=== PATIENT | female | born 1965 | race Hispanic/Latino ===

== ENCOUNTER 2018-12-16 11:57 | Day surgery (SDC) | payer OTHER ==
[2018-12-15 15:14] VITALS: BMI 26.5
[2018-12-16 13:32] VITALS: BP 120/59; TEMP 98
--- NOTE | 2018-12-16 15:48 | ULT ---
Sonographic guided fine needle aspiration thyroid mass. HISTORY: Thyroid mass. FINDINGS: After explaining the procedure and answering all questions, oval hypoechoic mass of the thy roid isthmus was confirmed. Sterile technique, buffered local anesthesia, sonographic guidance, and a left lateral approach were used to carefully advance a 25-gauge needle into the hypoechoic mass within the thyroid isthmus. Position was confirmed with sonography. A total of 4 FNA passes were obtained with 25-gauge needles and submitted to pathology for processing . Postprocedure imaging shows no evidence of complication. Patient tolerated the procedure well and was eventually dismissed in good condition. IMPRESSION: Technically successful sonographic guided FNA thyroid mass. Pathology is pending.
== END 2018-12-16 13:40 | disposition home or self-care (01) ==
LOC: ULT 11:57
PROVIDERS: ATTEND Otolaryngology Plastic Surgery within the Head & Neck
PROC: 0G9K3ZX Drainage of Thyroid Gland, Percutaneous Approach, Diagnostic (ICD-10-PCS; principal; 2018-12-16)
DX: E04.2 Nontoxic multinodular goiter (principal)
CPT/HCPCS: 60100; 76942; 88173